=== PATIENT | male | born 1990 | race African-American/Black ===

== ENCOUNTER 2018-01-10 21:13 | Emergency (ER) | payer OTHER ==
[~2018-01-10] VITALS: Ht 170.2 cm; Wt 90.7 kg
[~2018-01-10 21:13] MED LIST: BACTRIM DS TAB1 EACH PO; NORCO 5-325 TA1 EACH PO; XANAX 0.5 MG0.5 MG PO
[2018-01-10] MEDS ORDERED: MOBIC7.5 MG PO (21:48)
[2018-01-10 22:55] LABS: CALCIUM 9.6 mg/dL (8.5-10.1); CREATININE 1.4 mg/dL (0.7-1.3)
[2018-01-10 23:19] LABS: HEMOGLOBIN 15.6 gm/dL (14.0-18.0); MCHC 35.4 g/dL (28.0-37.0); MCV 90.4 fL (80.0-100.0); RBC 4.86 mil/uL (4.50-6.00); RDW 12.8 % (10.5-14.5); WBC 6.4 thou/uL (4.0-11.0)
[2018-01-10] MEDS ORDERED: ATIVAN0.5 MG PO (23:24)
[2018-01-10 23:42] VITALS: BP 107/69
== END 2018-01-10 23:47 | disposition home or self-care (01) ==
LOC: ER 21:13
PROVIDERS: Physician Assistant
DX: R20.2 Paresthesia of skin (principal); F41.9 Anxiety disorder, unspecified; J45.909 Unspecified asthma, uncomplicated